=== PATIENT | female | born 1985 | race Caucasian/White ===

== ENCOUNTER 2018-01-22 19:50 | Emergency (ER) | payer BC, OTHER ==
[~2018-01-22] VITALS: Ht 160 cm; Wt 74.8 kg
[2018-01-22 21:06] LABS: Basophils # (auto) 0.2 uL; Basophils % (auto) 1.5 % (0.0-2.0); Eosinophils # (auto) 0.1 uL; Eosinophils % (auto) 0.8 % (0.0-7.0); Hematocrit 46.2 % (36.0-46.0); Hemoglobin 15.5 g/dL (12.2-16.2); Lymphocytes # (auto) 1.8 uL; Lymphocytes % (auto) 11.6 % (10.0-50.0); Mean Corpuscular Hemoglobin 31.2 pg (28.0-32.0); Mean Corpuscular Hgb Conc. 33.5 g/dL (32.0-36.0); Monocytes % (auto) 6.4 % (0.0-12.0); Neutrophils # (auto) 12.3 uL; Neutrophils % (auto) 79.7 % (37.0-80.0); Platelet Count (auto) 330 10^3/uL (140-450); Red Blood Cells 4.97 10^6/uL (4.0-5.20); Red Cell Distribution Width 13.4 % (11.8-14.3); White Blood Cell 15.4 10^3/uL (4.4-10.8)
[2018-01-22 21:20] LABS: INR 0.92 (0.9-1.15); Partial Thromboplastin Time 30.8 sec (22.64-33.71)
[2018-01-22 21:28] LABS: Alanine Aminotransferase 25 U/L (13-56); Albumin 4.2 g/dL (3.4-5.0); Alkaline Phosphatase 104 U/L (45-117); Anion Gap 10 (5-15); Aspartate Aminotransferase 10 U/L (15-37); BUN/Creatinine Ratio 12.8; Bilirubin, Total 1.1 mg/dL (0.2-1.0); Blood Urea Nitrogen 11 mg/dL (7-18); Calcium 8.7 mg/dL (8.5-10.1); Carbon Dioxide 26 mmol/L (21-32); Chloride 102 mmol/L (98-107); GFR African American 98 mL/min; GFR Non-African American 81 mL/min; Glucose 171 mg/dL (74-106); Magnesium 2.4 mg/dL (1.6-2.6); Potassium 3.8 mmol/L (3.5-5.1); Sodium 138 mmol/L (136-145); Total Protein 8.8 g/dL (6.4-8.2)
[2018-01-23 04:06] LABS: Amylase 34 U/L (25-115); Lipase 192 U/L (73-393)
[2018-01-23 05:31] VITALS: BP 131/76
[2018-01-23 05:34] LABS: Urine Bacteria FEW /hpf (None Seen); Urine Blood 2+ /uL (Negative); Urine Mucus FEW (None Seen); Urine Specific Gravity 1.024 (1.001-1.035); Urine WBC 7 /hpf (0 - 5)
[2018-01-23] MEDS ORDERED: cefTRIAXone SOD 1,000 MG VL ONE (06:40)
[2018-01-23] MEDS ORDERED: cefTRIAXone SOD 1,000 MG VL IM ONE (06:45)
== END 2018-01-23 07:38 | disposition home or self-care (01) ==
LOC: EDBD 19:50 → ER 19:50
DX: R07.89 Other chest pain (principal); J03.90 Acute tonsillitis, unspecified; J45.909 Unspecified asthma, uncomplicated
CPT/HCPCS: 36415; 71045; 80053; 81001; 82150; 83690; 83735; 83880; 84443; 84484; 84702; 85025; 85379; 85610; 85730; 93005; 96372; 99285; J0696